=== PATIENT | female | born 1965 | race Caucasian/White ===

== ENCOUNTER 2017-05-29 00:22 | Emergency (ER) | payer MEDICAID ==
[2017-05-29 01:32] LABS: BASOPHIL % 0.5 % (0-2)
[2017-05-29 01:36] LABS: CALCIUM 8.6 mg/dL (8.5-10.1); CARBON DIOXIDE 31.4 mmol/L (21-32); CHLORIDE SERUM 99 mmol/L (98-107); CREATININE SERUM 0.5 mg/dL (0.6-1.0); GFR1 > 60 mL/min; GLUCOSE SERUM 79 mg/dL (74-106); POTASSIUM SERUM 3.3 mmol/L (3.5-5.1); SODIUM SERUM 140 mmol/L (136-145)
[2017-05-29 01:37] LABS: PLATELET COUNT 477 x10^3mcL (130-400); RED CELL DISTRIBUTION WIDTH 19.8 % (11.5-14.5)
[2017-05-29 01:41] LABS: ALKALINE PHOSPHATASE 77 U/L (46-116); ALT/SGPT 25 U/L (14-59); AST/SGOT 30 U/L (15-37); CHOLESTEROL 165 mg/dL (<200); LIPASE 212 IU/L (73-393); TOTAL PROTEIN, SERUM 7.1 g/dL (6.4-8.2)
[2017-05-29 01:42] LABS: ALBUMIN 2.6 g/dL (3.4-5.0); HDL CHOLESTEROL 33 mg/dL (40-60)
[2017-05-29 03:28] VITALS: BP 100/59
== END 2017-05-29 03:28 | disposition home or self-care (01) ==
LOC: ED 00:22
PROVIDERS: Emergency Medicine
DX: R05 Cough (principal); R06.02 Shortness of breath; K21.9 Gastro-esophageal reflux disease without esophagitis; D64.9 Anemia, unspecified; Z79.899 Other long term (current) drug therapy; Z98.84 Bariatric surgery status
CPT/HCPCS: 83880; J7030; Q0092